=== PATIENT | female | born 1990 | race African-American/Black ===

== ENCOUNTER → 2019-04-19 | Day surgery (SDC) | payer OTHER ==
[~2019-04-19] MED LIST: ACETAMINOPHEN 1000 MG/100 ML IV ONE; AMLODIPINE BESYL5 MG PO; BUPIVACAINE 0.25% 30ML SDV INJ ONE; DEXAMETHASONE SOD PHOS INJ 4 MG/ML VIAL ONE; FENTANYL CITRATE/PF 100MCG/2 ML INJ ONE; GLYCOPYRROLATE INJ 1MG/ 5 ML SYR ONE; HYDRALAZINE HCL 20 MG/ML VIAL ONE; LABETALOL HCL 20 ML ONE; LIDOCAINE HCL 2% LOCAL INJ 5 ML SDV VIAL INJ ONE; MIDAZOLAM HCL 2 MG/2 ML VIAL ONE; NEOSTIGMINE 5 MG/5ML SYR ONE; NUVARING VAGIN1 EACH VG; ONDANSETRON HCL INJ 2MG/ML 2ML 2 MG/ML VIAL ONE; PROPOFOL IV EMULSION 10 MG/ML 20 ML VIAL ONE; ROCURONIUM BROMIDE 10 MG/ML 5ML VIAL ONE; SEVOFLURANE INHAL SOLN 250 ML PEN BTL ONE; SUGAMMADEX SODIUM 200 MG/2 ML VIAL IV ONE
--- OUTSIDE RECORDS SUMMARY | 2019-04-19 05:22 | XMS REPORT | Clinical Summary ---
Author Author [facility] Organization [facility] Address Unknown Phone Unavailable Care Team Providers Care Dough Molder Hand Name Role Phone Lola Goode MD PCP Allergies No Known Allergies Medications End Date Status Medication Sig Dispensed Refills Start Date Active etonogestrel-ethinyl Insert 1 each 12 estradiol (NUVARING) vaginally and 9 0.12-0.015 mg/24 hr leave in vaginal ringIndications: place for 3 Encounter for consecutive surveillance of vaginal weeks, then ring hormonal remove for 1 contraceptive device week. Active amLODIPine (NORVASC) 5 mg Take 1 tablet 90 tablet 1 tabletIndications: (5 mg total) 9 Essential hypertension by mouth daily. 02/19/2019 Discontinued (Therapy completed) fluconazole (DIFLUCAN) 0 100 MG tablet 9 02/20/2019 Discontinued (Reorder) amLODIPine (NORVASC) 5 mg Take 1 tablet 30 tablet 5 tabletIndications: (5 mg total) 9 Essential hypertension by mouth daily. Active Problems Problem Noted Date Abnormal Pap smear of cervix 07/25/2012 Overview: HPV+; repeat pap smear normal Anal high risk human papillomavirus (HPV) DNA test positive 07/25/2012 Migraine Encounters Care Team Description Date Type Specialty Lola Goode MD Essential hypertension (Primary Dx) 03/13/2019 Office Visit Family Medicine Lola Goode MD Essential hypertension 03/01/2019 Hospital Procedural Cardiology Encounter Lola Goode MD Essential hypertension (Primary Dx) 02/23/2019 Transcribe Access Orders Lola Goode MD Essential hypertension 02/20/2019 Telephone Family Medicine Lola Goode MD Essential hypertension (Primary Dx); Abnormal EKG 02/19/2019 Office Visit Family Lola Alcantar MD 12/21/2018 Refill Family Medicine Lola Goode MD Encounter for surveillance of vaginal ring hormonal contraceptive device 12/21/2018 Refill Family Lola Alcantra MD Encounter for surveillance of vaginal ring hormonal contraceptive device 12/18/2018 Refill Family Medicine Lola Goode MD Well woman exam with routine gynecological exam (Primary Dx); Screening examination for STD (sexually transmitted disease); Screening for diabetes mellitus; Screening, anemia, deficiency, iron; Encounter for surveillance of vaginal ring hormonal contraceptive device 10/03/2018 Office Visit Family Lola Alcantar MD 10/03/2018 Orders Only Family Medicine after 04/18/2018 Family History Medical History Relation Name Comments Gout Father Hypertension Father Kidney failure Father Diabetes Maternal Grandfather Diabetes Maternal Grandmother No Known Problems Mother Diabetes Paternal Grandfather Other Sister prediabetes No Known Problems Sister Relation Name Status Comments Father Alive Maternal Grandfather (Age 40) Maternal Grandmother (Age 80) Mother Alive Paternal Grandfather Alive Sister Alive Sister Alive Social History Date Tobacco Use Types Packs/Day Years Used Never Smoker Smokeless Tobacco: Never Used Drinks/Week oz/Week Comments Alcohol Use Yes Sex Assigned at Date Recorded Female 10/03/2018 10:36 AM CDT Industry Job Start Date Occupation Not on file Not on file Not on file Travel End Travel History Travel Start No recent travel history available. Last Filed Vital Signs Reading Time Taken Comments Vital Sign 163/105 03/13/2019 2:00 PM CDT Blood Pressure 74 03/13/2019 2:00 PM CDT Pulse - - Temperature 18 10/03/2018 12:06 PM CDT Respiratory Rate - - Oxygen Saturation - - Inhaled Oxygen Concentration 59 kg (130 lb) 03/13/2019 2:00 PM CDT Weight 154.9 cm (5' 1") 03/13/2019 2:00 PM CDT Height 24.56 03/13/2019 2:00 PM CDT Body Mass Index Plan of Treatment Care Team Description Date Type Specialty Lola Goode MD [address] [facility] [address] [place] [address] [phone] 10/02/2019 Office Visit Family Medicine Health Maintenance Due Date Last Done Comments CERVICAL CANCER SCREENING 07/25/2017 07/25/2016 INFLUENZA VACCINE 06/12/2019 Postponed from 02/22/2019 (Insurance / Financial) Procedures Comments Procedure Name Priority Date/Time Associated Diagnosis US RENAL ARTERY VEIN Routine 03/01/2019 Essential hypertension COMPLETE 8:56 AM CDT ECG 12-LEAD Routine 02/19/2019 Essential hypertension 3:25 PM CDT GYNECOLOGIC PAP TEST Routine 10/03/2018 (IMAGE-GUIDED), 2:16 PM CDT LIQUID-BASED PREPARATION AND CHL ACOG AGE-BASED GUIDELINE Routine 10/03/2018 FOR CERVICAL CANCER PLUS 2:[address]/NG RNA QUALITATIVE (MYRNA Routine 10/03/2018 HIST) 12:22 PM CDT INTERPRETATION Routine 10/03/2018 12:22 PM CDT CBC WITH PLATELET AND Routine 10/03/2018 Screening, anemia, DIFFERENTIAL 12:22 PM CDT deficiency, iron COMPREHENSIVE METABOLIC Routine 10/03/2018 Screening for diabetes PANEL 12:22 PM CDT mellitus SYPHILIS TREPONEMAL IGG Routine 10/03/2018 Screening examination for 12:22 PM CDT STD (sexually transmitted disease) HIV 1/2 AB Routine 10/03/2018 Screening examination for DIFFERENTIATION W/RFL TO 12:22 PM CDT STD (sexually transmitted HIV 1 RNA disease) HEPATITIS B SURFACE Routine 10/03/2018 Screening examination for ANTIGEN 12:22 PM CDT STD (sexually transmitted disease) HEPATITIS B SURFACE Routine 10/03/2018 Screening examination for ANTIBODY 12:22 PM CDT STD (sexually transmitted disease) HEPATITIS B CORE ANTIBODY Routine 10/03/2018 Screening examination for IGM 12:22 PM CDT STD (sexually transmitted disease) HCV ANTIBODY REFLEX TO Routine 10/03/2018 Screening examination for CHRISTIAN 12:22 PM CDT STD (sexually transmitted disease) after 04/18/2018 Results * Us duplex renal artery vein complete (03/01/2019 8:56 AM CDT) Aortic proximal 108.1 cm/s [facility] velocity Aortic middle 82.6 cm/s [facility] velocity Aortic distal 78.9 cm/s [facility] velocity Prox aortic 1.82 cm [facility] trans Mid aortic AP 1.62 cm [facility] Mid aortic 1.67 cm [facility] trans Dist aortic AP 1.51 cm [facility] Dist aortic 1.58 cm [facility] trans Right kidney 10.41 cm [facility] length Right kidney 5.13 cm [facility] width Left kidney 10.16 cm [facility] length Left kidney 5.85 cm [facility] width Prox aortic AP 1.74 cm [facility] Right renal 130 cm/s [facility] prox sys Right renal mid 172.1 cm/s [facility] sys Right renal 189.7 cm/s [facility] dist sys Right renal 75 cm/s [facility] prox gonzalez Right renal mid 84.7 cm/s [facility] gonzalez Right renal 88.6 cm/s [facility] dist gonzalez Right renal 1.8 [facility] dist rar Left renal prox 102.6 cm/s [facility] sys Left renal mid 99 cm/s [facility] sys Left renal dist 175.3 cm/s [facility] sys Left renal prox 44.2 cm/s [facility] gonzalez Left renal mid 47.8 cm/s [facility] gonzalez Left renal dist 81.5 cm/s [facility] gonzalez Left renal dist 1.6 [facility] rar Specimen Narrative Performed At [facility] Bilateral renal arterial duplex ultrasound shows normal kidney size. Less than 60% stenosis within the mid to distal right renal artery. Less than 60% stenosis within the distal left renal artery. Performing Organization Address City/State/Zipcode Phone Number [facility] [address] [place] [address] * ECG 12 lead (02/19/2019 3:25 PM CDT) Ventricular 89 [facility] rate Atrial rate 89 [facility] WI interval 146 [facility] QRSD interval 74 [facility] QT interval 420 [facility] QTC interval 511 [facility] P axis 1 77 [facility] QRS axis 1 69 [facility] T wave axis 66 [facility] EKG impression Normal sinus rhythm-Right [facility] atrial enlargement-Nonspecific ST abnormality-Prolonged QT-Abnormal ECG-No previous ECGs available- Specimen Narrative Performed At Performing Organization Address City/State/Zipcode Phone Number [facility] [address] [place] [address] * Gynecologic Pap [id number] Guideline for Cervical Cancer (Aptima) Plus Chlamydia/Gonococcus (10/03/2018 2:16 PM CDT) Age GDLN ACOG 21-29 [facility] testing Specimen Narrative Performed At Performed at:01 - [facility] [address] [place], [id number] Building Associate: Hannah Harkins MD, Phone:[phone] Specimen Comment: No. of containers..01 ThinPrep Vial Performing Organization Address City/State/Zipcode Phone Number [facility] * Gynecologic Pap Test (Image-guided), Liquid-based Preparation and Chlamydia/Gonococcus, CHRISTIAN With Reflex to Human Papillomavirus (HPV) (Aptima) When ASC-U (10/03/2018 2:16 PM CDT) Diagnosis CommentComment: NEGATIVE FOR [facility] 02 INTRAEPITHELIAL LESION AND MALIGNANCY. Specimen Comment [facility] 02 adequacy Comment: Satisfactory for evaluation.No endocervical component is identified. The absence of an endocervical component was confirmed by an additional screening evaluation. Clinician Comment [facility] 02 provided ICD10 Comment: Z11.3 Z01.419 Z13.1 Z13.0 Performed by: CommentComment: Thao Riggs [facility] 02 Kemar, Supervisory Machine Maintenance Repairer (ASC) QC reviewed by: CommentComment: Paras [facility] 02 Thuan Machine Maintenance Repairer (ASCP) Comment . [facility] 02 Note: Comment [facility] 02 Comment: The Pap smear is a screening test designed to aid in the detection of premalignant and malignant conditions of the uterine cervix.It is not a diagnostic procedure and should not be used as the sole means of detecting cervical cancer.Both false-positive and false-negative reports do occur. Test Comment [facility] 02 methodology Comment: This liquid based ThinPrep(R) pap test was screened with the use of an image guided system. Reflex Comment [facility] 02 Comment: The HPV DNA reflex criteria were not met with this specimen result therefore, no HPV testing was performed. Chlamydia, Negative Negative [facility] nucleic acid amp Gonococcus by Negative Negative [facility] nucleic acid amp Specimen Narrative Performed At Performed at: - [facility] [address] [place], [place] [id number] Building Associate: Hannah Harkins MD, Phone:[phone] Performed at: [id number] Building Associate: Hannah Harkins MD, Phone:[phone] Performing Organization Address [facility] Phone Number [facility] 02 * RNA Qualitative (10/03/2018 12:22 PM CDT) HIV 1 RNA NegativeComment: Negative for Negative [facility] 02 qualitative HIV-1 RNA Final Comment [facility] interpretation Comment: HIV antibodies were not confirmed and HIV 1 RNA was not detected. No laboratory evidence of HIV 1 infection. Follow-up testing for HIV 2 should be performed if clinically indicated. Specimen Narrative Performed At Performed at: [facility] [address] [place], [id number] Building Associate: Karlos Bateman MD, Phone:[phone] Performed at: [id number] Building Associate: Zan Bernabe MD, Phone:[phone] Performing Organization Address [facility] Phone Number [facility] 02 * HCV Ab w/Rflx to Verification (10/03/2018 12:22 PM CDT) Hepatitis C Ab <0.1 0.0 - 0.9 s/co ratio [facility] Specimen Blood Narrative Performed At Performed at: [id number] Building Associate: Zan Bernabe MD, Phone:[phone] Performing Organization Address City/[facility] Phone Number [facility] * HIV 1/2 Ab Differentiation w/Rfl to HIV 1 RNA (10/03/2018 12:22 PM CDT) HIV-1 antibody Negative Negative [facility] HIV-2 antibody Negative Negative [facility] Interpretation NegativeComment: See RNA [facility] Reflex. Specimen Blood Narrative Performed At Performed at:[address] [place] [address] [id number] Building Associate: Zan Bernabe MD, Phone:[phone] Performing Organization Address [facility] Phone Number [facility] * INTERPRETATION (10/03/2018 12:22 PM CDT) Pathologist [facility] Interpretation Comment [facility] Comment: Negative Not infected with HCV, unless recent infection is suspected or other evidence exists to indicate HCV infection. Specimen Narrative Performed At Performed at:[address] [place] [address] [id number] Building Associate: Zan Bernabe MD, Phone:[phone] Performing Organization Address [facility] Phone Number [facility] * Syphilis treponemal IgG (10/03/2018 12:22 PM CDT) Pathologist [facility] Syphilis Negative Negative [facility] treponemal Ab Specimen Blood Narrative Performed At Performed at:[address] [place], [place] [id number] Building Associate: Karlos Bateman MD, Phone:[phone] Performing Organization Address City/[facility] Phone Number [facility] * Hepatitis B core antibody IgM (10/03/2018 12:22 PM CDT) Pathologist [facility] Hepatitis B Negative Negative [facility] core IgM Specimen Blood Narrative Performed At Performed at:[address] [place] [address] [id number] Building Associate: Zan Bernabe MD, Phone:[phone] Performing Organization Address City/[facility] Phone Number [facility] * Hepatitis B surface antibody (10/03/2018 12:22 PM CDT) [facility] Hepatitis B Reactive [facility] surface Ab Comment: No n Reactive: Inconsistent with immunity, less than 10 mIU/mL Re active: Consistent with immunity, grea ter than 9.9 mIU/mL Specimen Blood Narrative Performed At Performed at:[address] [place] [address] [facility] [address] [place], [place] [id number] Building Associate: Zan Bernabe MD, Phone:[phone] Performing Organization Address [facility] Phone Number [facility] * Hepatitis B surface antigen (10/03/2018 12:22 PM CDT) [facility] Hepatitis B Negative Negative [facility] surface Ag Specimen Blood Narrative Performed At Performed at:[address] [place] [address] [facility] [address] [place], [place] [id number] Building Associate: Zan Bernabe MD, Phone:[phone] Performing Organization Address [facility] Phone Number [facility] * CBC with platelet and differential (10/03/2018 12:22 PM CDT) [facility] WBC 6.0 3.4 - 10.8 x10E3/uL [facility] RBC 4.67 3.77 - 5.28 x10E6/uL [facility] HGB 14.2 11.1 - 15.9 g/dL [facility] HCT 42.4 34.0 - 46.6 % [facility] MCV 91 79 - 97 fL [facility] MCH 30.4 26.6 - 33.0 pg [facility] MCHC 33.5 31.5 - 35.7 g/dL [facility] RDW 14.7 12.3 - 15.4 % [facility] Platelet count 406 (H) 150 - 379 x10E3/uL [facility] Neutrophils 50 Not Estab. % [facility] Lymphocytes 35 Not Estab. % [facility] Monocytes 10 Not Estab. % [facility] Eosinophils 4 Not Estab. % [facility] Basophils 1 Not Estab. % [facility] Neutrophils, 3.0 1.4 - 7.0 x10E3/uL [facility] absolute Lymphocytes, 2.1 0.7 - 3.1 x10E3/uL [facility] absolute Monocytes, 0.6 0.1 - 0.9 x10E3/uL [facility] absolute Eosinophils, 0.3 0.0 - 0.4 x10E3/uL [facility] absolute Basophils, 0.0 0.0 - 0.2 x10E3/uL [facility] absolute Immature 0 Not Estab. % [facility] granulocytes Immature grans 0.0 0.0 - 0.1 x10E3/uL [facility] (abs) Specimen Blood Narrative Performed At [facility]formed at:[facility] [address] [place], [place] [id number] Building Associate: Zan Bernabe MD, Phone:[phone] Performing Organization Address [facility] Phone Number [facility] * Comprehensive metabolic panel (10/03/2018 12:22 PM CDT) Glucose 62 (L) 65 - 99 mg/dL [facility] BUN, whole 9 6 - 20 mg/dL [facility] blood Creatinine 0.67 0.57 - 1.00 mg/dL [facility] EGFR Non-Afr. 123 >59 mL/min/1.73 [facility] [place] EGFR 141 >59 mL/min/1.73 [facility] [place] BUN/creatinine 13 9 - 23 [facility] ratio Sodium 141 134 - 144 mmol/L [facility] Potassium 4.2 3.5 - 5.2 mmol/L [facility] Chloride 98 96 - 106 mmol/L [facility] CO2 27 20 - 29 mmol/L [facility] Calcium 9.7 8.7 - 10.2 mg/dL [facility] Protein 7.7 6.0 - 8.5 g/dL [facility] Albumin, S 4.7 3.5 - 5.5 g/dL [facility] Globulin, total 3.0 1.5 - 4.5 g/dL [facility] Albumin/globuli 1.6 1.2 - 2.2 [facility] n ratio Total bilirubin 0.3 0.0 - 1.2 mg/dL [facility] Alkaline 97 39 - 117 IU/L [facility] phosphatase AST 24 0 - 40 IU/L [facility] ALT 21 0 - 32 IU/L [facility] Specimen Blood Narrative Performed At Performed at:01 - [facility] [place], [id number] Building Associate: Zan Bernabe MD, Phone:[phone] Performing Organization Address [facility]/State/Zipcode Phone Number [facility] after 04/18/2018 Insurance Type Payer Benefit Subscriber ID Effective Phone Address Plan / Dates Group HMO/PPO [facility] xxxxxxxxx 2018-P THCARE resent CHOICE/CHO ICE + Advance Directives For more information, please contact: [phone] 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
--- OUTSIDE RECORDS SUMMARY | 2019-04-19 05:22 | XMS REPORT | Encounter Summary ---
Author Organization Unknown Address [address] [place] [address] Phone [phone] Reason for Visit Medical Complaint Instructions 1. Acute tonsillitis rapid strep group A, throat mononucleosis, heterophile Ab, blood tonsillitis: care instructions amoxicillin 875 mg tablet 2. Pityriasis versicolor tinea versicolor: care instructions ketoconazole 2 % shampoo 3. Body mass index 25-29 - overweight learning about healthy weight Discussion Note: None recorded. Plan of Care Patient Instructions Follow up with PCP or go to ER or urgent care if symptoms get worsen Reminders Provider Appointments None recorded. Lab Rapid Strep Group a, Throat 07/21/2018 [facility] Mononucleosis, Heterophile Ab, Blood 07/21/2018 [facility] Referral None recorded. Procedures None recorded. Surgeries None recorded. Imaging None recorded. Medications Name Start Date amoxicillin 875 mg tablet Take 1 tablet every 12 hours by oral route with meals for 10 days. ketoconazole 2 % shampoo APPLY TO THE AFFECTED AREA(S), LATHER, LEAVE IN PLACE FOR 5 MINUTES, AND THEN RINSE OFF WITH WATER BY TOPICAL ROUTE ONCE DAILY NuvaRing Medications Administered None recorded. Vitals Height Weight BMI Blood Pressure 5 ft 1 in 135 lbs 25.5 kg/m2 120/86 mm[Hg] Lab Results Date Name Specimen Result Interpretation Description Value Range Status Address Mononucleosis, Heterophile Ab, Blood Result negative [facility]: [address] [place] [address] Rapid Strep Group a, Throat Result negative [facility]: [address] [place] [address] Swab Location Left and Right tonsillar pillars [facility]: [address] [place] [address] Allergies Code Code System Name Reaction Severity Status Onset NKDA Problems None recorded. Procedures None recorded. Vaccine List None recorded. Social History Smoking Status Never Smoker Past Encounters 07/21/2018 Acute Tonsillitis; Pityriasis Versicolor; Body Mass Index 25-29 - Overweight [facility]: [address] [place] [address], Ph. [phone] History of Present Illness Throat-Oral Complaint Reported By: Patient HPI: Location: throat. Quality: sore throat. Severity: mild. Duration: 2 days. Onset/Timing: sudden. Context: no sick contacts, no foreign travel, non-smoker. Associated Symptoms: no fever, no headache, no body aches, no sputum production, no shortness of breath, no wheezing, no change in number of pillows needed to sleep at night, no sweats, no significant weight gain, no significant weight loss, no morning cough, no vomiting, no diarrhea, no rash, no nausea, sore throat Review of Systems:ROS as noted in the HPI Review of Systems Basic Reported By: Patient Physical Exam Adult Basic, Adult Female Complete, Adult Male Complete Reported By: Patient Constitutional: General Appearance: healthy-appearing, well-nourished, well-developed. Level of Distress: NAD. Ambulation: ambulating normally Psychiatric: Mental Status: active and alert. Orientation: to time, to place, to person Mbn-Mcxd-Vtnhk-Throat: Ears: no lesions on external ear, no outer ear tenderness, EACs clear, TMs clear, TM mobility normal. Hearing: no hearing loss. Nose: no lesions on external nose, nares patent, no septal deviation, nasal passages clear, no sinus tenderness, no nasal discharge. Lips, Teeth, and Gums: no mouth or lip ulcers, no bleeding gums, normal dentition. Oropharynx: moist mucous membranes, erythema, exudates, tonsils enlarged 1+ Neck: Lymph Nodes: no cervical LAD Lungs: Respiratory effort: no dyspnea, no tachypnea, no use of accessory muscles, no intercostal retractions. Auscultation: breath sounds normal, good air movement Cardiovascular: Heart Auscultation: RRR, no murmurs Neurologic: Gait and Station: normal gait, normal station
--- OUTSIDE RECORDS SUMMARY | 2019-04-19 05:22 | XMS REPORT | Encounter Summary ---
Author Organization Unknown Address [address] [place] [id number] Phone [phone] Reason for Visit Medical Complaint Instructions 1. Acute tonsillitis rapid strep group A, throat tonsillitis: care instructions amoxicillin 875 mg tablet Lidocaine Viscous 2 % mucosal solution culture, respiratory 2. Influenza-like symptoms rapid flu (A+B) 3. Elevated blood-pressure reading without diagnosis of hypertension elevated blood pressure: care instructions Discussion Note: None recorded. Plan of Care Patient Instructions Probable Bacterial Pharyngitis or Tonsillitis You have an infection in your throat that is most likely bacterial. Take antibiotics only as prescribed. Once starting an antibiotic course, finish the entire course unless otherwise indicated by a medical professional. If you develop a reaction to the medication, including rash, hives, swelling of throat, difficulty breathing, stop immediately and seek medical care. Take a daily probiotic or eat a daily yogurt Increase non-caffeinated fluid intake Warm and cold liquids, throat lozenges and warm salt water gargles may help with sore throat symptom Get plenty of rest Take over-the counter or prescribed medication as directed Take Ibuprofen and/or Tylenol as needed for pain and/or fever Change your toothbrush in 48-72 hours to decrease risk of reinfection Avoid close contact with others, including kissing or sharing cups, water bottles and fountains, and utensils with others If a throat culture was collected, you will receive a phone call with positive results and results without portal access. Normal results will be published to the portal at [employer] If your symptoms do not improve in 48 hours or worsen, return immediately to [facility] or follow up with your primary care provider for further evaluation Seek immediate medical attention (ER) or call 911 if you develop chest pain, shortness of breath, difficulty breathing, prolonged fever of more than 101 degrees F, difficulty swallowing or opening your mouth or any other concerning symptoms If you have any need to contact [facility], including questions or concerns, please contact or Reminders Provider Appointments None recorded. Lab Rapid Flu (A+B) 12/31/2018 [facility] Rapid Strep Group a, Throat 12/31/2018 [facility] Culture, Respiratory 12/31/2018 [facility] Referral None recorded. Procedures None recorded. Surgeries None recorded. Imaging None recorded. Medications Name Start Date amoxicillin 875 mg tablet Take 1 tablet every 12 hours by oral route with meals for 10 days. Lidocaine Viscous 2 % mucosal solution Take 15 mL every 3 hours by oral route as needed. garggle swish and spit NuvaRing Medications Administered None recorded. Vitals Height Weight BMI Blood Pressure 5 ft 1 in 135 lbs 25.5 kg/m2 (1) 140/78 mm[Hg] (2) 136/74 mm[Hg] Lab Results Date Name Specimen Result Interpretation Description Value Range Status Address Rapid Strep Group a, Throat Result negative [facility]: [address] [place] [address] Swab Location Left and Right tonsillar pillars [facility]: [address] [place] [address] Rapid Flu (A+B) Influenza a negative [facility]: [address] [place] [address] Influenza B negative [facility]: [address] [place] [address] Allergies Code Code System Name Reaction Severity Status Onset NKDA Problems No Known Problems Procedures None recorded. Vaccine List None recorded. Social History Smoking Status Never Smoker Past Encounters 12/31/2018 Acute Tonsillitis; Influenza-like Symptoms; Elevated Blood-pressure Reading without Diagnosis of Hypertension Emily Evangelista, MACHINE OVERHAULER-C: [address] [facility] [place] [address], Ph. History of Present Illness [id number] Reported By: Patient HPI: Location: head/sinuses, throat. Quality: sore throat, nasal/sinus congestion. Duration: 2days. Severity: moderate. Onset/Timing: gradual. Context: no sick contacts, no foreign travel, non-smoker. Modifying factors: OTC medication. Associated Symptoms: no shortness of breath, no wheezing, no change in number of pillows needed to sleep at night, no sweats, no vomiting, no diarrhea, no nausea, fatigue, sore throat, muscle aches Review of Systems Basic Reported By: Patient Constitutional: Constitutional: no fever Eyes: Eyes: no eye complaints Cjls-Vvye-Dfftx-Throat: Ears: no ear complaints. Nose: nose/sinus problems. Mouth/Throat: no bleeding gums, no mouth complaints, no teeth problems, sore throat Cardiovascular: Cardiovascular: no chest pain, no shortness of breath, no known heart murmur Respiratory: Respiratory: no wheezing, no shortness of breath, cough Gastrointestinal: Gastrointestinal: no abdominal pain, no vomiting / diarrhea Genitourinary: Genitourinary: no urinary complaints, no discharge Musculoskeletal: Musculoskeletal: no muscle weakness, no arthralgias/joint pain, no back pain, muscle aches Skin: Skin: no abnormal / changing mole, no jaundice, no rashes Neurologic: Neurologic: no loss of consciousness, no weakness, no numbness, no seizures, no dizziness, no headaches Physical Exam Adult Basic, Adult Female Complete Reported By: Patient Constitutional: General Appearance: well-nourished, well-developed. Level of Distress: NAD Eyes: Lids and Conjunctivae: non-injected, no discharge Zcb-Fkul-Ucpgr-Throat: Ears: no lesions on external ear, no outer ear tenderness, EACs clear, TMs clear. Nose: no lesions on external nose, no sinus tenderness, nasal discharge, post nasal drip. Oropharynx: moist mucous membranes, erythema, exudates, tonsils enlarged 2+ Neck: Lymph Nodes: posterior cervical LAD. Thyroid: no enlargement, non-tender, no nodules Lungs: Respiratory effort: no tachypnea Cardiovascular: Heart Auscultation: no murmurs Neurologic: Gait and Station: normal gait
--- OUTSIDE RECORDS SUMMARY | 2019-04-19 05:22 | XMS REPORT | Continuity of Care Document ---
Author Author [employer] Address Unknown Phone Unavailable Care Team Providers Care Machine Designer Name Role Phone [email or web address] Unavailable Unavailable Problems Problem Status Onset Date Classification Date Reported Comments Source Acute tonsillitis 12/31/2018 Diagnosis 12/31/2018 [facility] Elevated blood-pressure reading without diagnosis of hypertension 12/31/2018 Diagnosis 12/31/2018 [facility] Influenza-like symptoms 12/31/2018 Diagnosis 12/31/2018 [facility] Body mass index 25-29 - overweight 07/22/2018 Diagnosis 07/22/2018 [facility] Pityriasis versicolor 07/22/2018 Diagnosis 07/22/2018 [facility] Medications Medication Details Route Status Patient Instructions Ordering Provider Order Date Source Amoxicillin 875 MG Oral Tablet amoxicillin 875 mg tablet Take 1 tablet every 12 hours by oral route with meals for 10 days. Active [facility] Lidocaine Hydrochloride 20 MG/ML Mucous Membrane Topical Solution Lidocaine Viscous 2 % mucosal solution Take 15 mL every 3 hours by oral route as needed. garggle swish and spit Active [facility] NuvaRing NuvaRing Active [facility] Ketoconazole 20 MG/ML Medicated Shampoo ketoconazole 2 % shampoo APPLY TO THE AFFECTED AREA(S), LATHER, LEAVE IN PLACE FOR 5 MINUTES, AND THEN RINSE OFF WITH WATER BY TOPICAL ROUTE ONCE DAILY Active [facility] Allergies, Adverse Reactions, Alerts No Known Medication Allergies Immunizations No Data Provided for This Section Results Order Name Results Value Reference Range Date Interpretation Comments Source RESULT negative 12/31/2018 [facility] SWAB LOCATION Left and Right tonsillar pillars 12/31/2018 [facility] Influenza A negative 12/31/2018 [facility] Influenza B negative 12/31/2018 [facility] RESULT negative 07/21/2018 [facility] RESULT negative 07/21/2018 [facility] SWAB LOCATION Left and Right tonsillar pillars 07/21/2018 [facility] Pathology Reports No Data Provided for This Section Diagnostic Reports No Data Provided for This Section Consultation Notes No Data Provided for This Section Discharge Summaries No Data Provided for This Section History and Physicals No Data Provided for This Section Vital Signs Vital Sign Value Date Comments Source Diastolic (mm Hg) 74 12/31/2018 [facility] Height 61 12/31/2018 [facility] Systolic (mm Hg) 136 12/31/2018 [facility] Weight 135 12/31/2018 [facility] Diastolic (mm Hg) 86 07/21/2018 [facility] Height 61 07/21/2018 [facility] Systolic (mm Hg) 120 07/21/2018 [facility] Weight 135 07/21/2018 [facility] Encounters Location Location Details Encounter Type Encounter Number Reason For Visit Attending Provider ADM Date DC Date Status Source [place] - [id number] [facility] RossP-C: [address] [place] [address], Ph. [phone] [id number] Chantell Wells 07/21/2018 [facility] [place] [id number]asP[facility]: [address] [facility] [place] [address], Ph. [id number] Emily Evangelista 12/31/2018 [facility] Procedures No Data Provided for This Section Assessment and Plan No Data Provided for This Section Plan of Care No Data Provided for This Section Social History Social History Date Source Smoking Status Never Smoker 07/21/2018 [facility] Family History No Data Provided for This Section Advance Directives No Data Provided for This Section Functional Status No Data Provided for This Section
--- NOTE | 2019-04-19 07:10 | NUR ---
SPIRITUAL CARE - Pre-Surgery Assessment: Pt in bed. Pt's mom at bedside. Pt reported supportive attention from family and friends. Intervention: I provided pastoral presence, hospitality, and sympathetic listening. I acquainted pt with availability of optical coating technician while hospitalized. Outcome: Pt expressed appreciation for visit. No need for follow up indicated at this time. [facility]ual [facility] Department O: [phone] Pager: [phone] ([phone] number calling from)
[2019-04-19 10:30] VITALS: BP 135/99
--- NOTE | 2019-04-19 14:44 | Operative Report ---
DATE OF PROCEDURE: 04/19/2019 SURGEON: Edison Alonzo MD PREOPERATIVE DIAGNOSIS: Chronic adenotonsillitis, adenotonsillar hypertrophy. POSTOPERATIVE DIAGNOSIS: Chronic adenotonsillitis, adenotonsillar hypertrophy. PROCEDURE: Tonsillectomy and adenoidectomy. SIGNIFICANT FINDINGS: Tonsils are 3+/3+. Severely scarred tonsillar beds, worse on the right than the left. The adenoids were mildly hypertrophied. ANESTHESIA: General endotracheal tube anesthesia. SPECIMENS REMOVED: Tonsils (adenoids were coblated). ESTIMATED BLOOD LOSS: Less than 1 mL. COMPLICATIONS: None. INDICATIONS: The patient is a 28-year-old female with 4 months history of frequent episodes of throat pain, odynophagia, otalgia, as well as enlarged erythematous exudative tonsils with enlarged tender tonsillar lymphadenopathy. She is a nonsmoker. She has been refractory to multiple courses of antibiotics. She has had no previous throat or neck surgery. On examination, her tonsils are 3+/3+ scarred bilaterally. She is scheduled for tonsillectomy and adenoidectomy for the treatment of chronic adenotonsillitis and adenotonsillar hypertrophy. Risks and complications of the procedures were thoroughly discussed with the patient and they include infection, bleeding, scarring, failure to improve, damage to teeth, gums, tongue and lips, persistent throat infections, need for further surgery, chronic pain, voice changes, numbness of the tongue, inability to taste, scarring of the eustachian tube orifices causing middle ear fluid and hearing loss, scarring of the nasopharynx resulting in permanent worse nasal obstruction, leakage of fluid through the nose and drinking liquids, damage to surrounding nerves, blood vessels and muscles, need for blood transfusions. She fully understands and gives consent. PROCEDURE IN DETAIL: The patient was taken to the operating room and placed supine on the operating table where general anesthesia was achieved through orotracheal intubation. Eyes were taped. Shoulder roll was placed. Head and body were draped. Table was turned 90 degrees with the head towards the surgeon. Peewee-Haider mouth gag was inserted without difficulty and placed in suspension on the Beyer stand. There was no evidence of bifid uvula, diastasis of the muscular uvula, or a notched hard palate. Red rubber catheters were then inserted into the nose and brought out through the mouth to retract the soft palate. Examination of the nasopharynx with the laryngeal mirror revealed the adenoids to be mildly hypertrophied. The left tonsil was grasped with the tonsil Allis clamp and was removed with the ArthroCare Coblator on a setting of 6 on cut mode, taking care to stay on the capsule of the tonsil. The right tonsil was removed in the same way. Both tonsillar beds were significantly scarred, worse on the right side. Hemostasis was obtained with the Coblator on a setting of 3 on coag mode. Following this, the adenoids were then removed with the ArthroCare Coblator on a setting of 8 on cut mode, taking care to avoid trauma to the torus tubarius bilaterally. Hemostasis was obtained with the Coblator on a setting of 3 on coag mode. Following this, no evidence of bleeding was seen even with Valsalva maneuver. Thorough irrigation was performed. Injection with 3 mL of 0.25% plain Marcaine was injected into the free edges of the anterior and posterior tonsillar pillars. Stomach contents were suctioned with an NG tube. The red rubber catheters and Peewee-Haider mouth gag were then removed without difficulty revealing no trauma to the teeth, gums, tongue, and lips. The patient was awakened in the operating room, extubated, and taken to the recovery room in good condition. Edison Alonzo MD JKY/[id number] /[id number] GUNJAN
== END | disposition home or self-care (01) ==
LOC: OR 05:15
PROVIDERS: ATTEND Otolaryngology
DX: J35.03 Chronic tonsillitis and adenoiditis (principal); I10 Essential (primary) hypertension; G43.909 Migraine, unspecified, not intractable, without status migrainosus; Z01.810 Encounter for preprocedural cardiovascular examination
CPT/HCPCS: 42821; 81025; 88304; 93005; J0131; J0360; J1100; J2001; J2250; J2405; J2704; J3010; J3490 ×2